=== PATIENT | male | born 1950 | race Caucasian/White ===

== ENCOUNTER → 2020-02-21 | Outpatient (CLI) | payer MEDICARE, OTHER ==
[~2020-02-21] MED LIST: 0.9 % SODIUM CHLORIDE 10 ML VIAL. ONE; AMLO-433 PO; ASPI-630 PO; BUPIVACAINE MPF 0.25% 10 ML VIAL. ONE; BUPR150T11 PO; DEXAMETHASONE SOD PHOS 10 MG/ML VIAL. ONE; GABA600T7 PO; IOHEXOL 300 MG/ML 50 ML VIAL. ONE; LIDOCAINE 1% PF 30 ML VIAL. ONE; LISI10TA2 PO; TADA5TAB PO
[2020-02-21 12:57] VITALS: BP 152/89
== END | disposition home or self-care (01) ==
LOC: SURG 12:22
PROVIDERS: ATTEND Anesthesiology
DX: M54.16 Radiculopathy, lumbar region (principal); M19.90 Unspecified osteoarthritis, unspecified site; Z79.82 Long term (current) use of aspirin; Z79.899 Other long term (current) drug therapy
CPT/HCPCS: 64483; J1100; J2001; J3490; Q9967